=== PATIENT | female | born 1980 | race Caucasian/White ===

== ENCOUNTER 2016-09-21 19:25 | Emergency (ER) | payer OTHER ==
--- NOTE | 2016-09-21 19:33 | EDM.PDOC ---
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 Patient has had on and off contractions and cramping throughout this . This evening she had an episode passing some brownish discharge. She has been followed by Dr. Hodges this . She's had a series of quantitative hCGs her most recent done earlier today which was a little above 31,000. On 16 September it was 2515 on the it was 14,697. This is obviously trending up. The patient has not had any fevers or chills no nausea or vomiting she is eating and drinking okay yesterday she was doing some exercises that involve some jumping and she wonders if maybe she overdid it. She is a one para zero. - Related Data Allergies/ADRs: Allergies Allergy/AdvReac Type Severity Reaction Status Date / Time Penicillins Allergy hives, Verified 09/21/16 19:38 itching Home Meds: Home Meds #103/Iron Fumarate/Fa [ ] 1 mg PO BID 09/21/16 [History] ED ROS GENERAL - Review of Systems Review Of Systems: See Below Constitutional: Reports: no symptoms Respiratory: Reports: no symptoms Cardiovascular: Reports: No symptoms GI/Abdominal: Reports: No symptoms : Reports: other (today's episode of spotting and cramping) Musculoskeletal: Reports: no symptoms Neurological: Reports: no symptoms ED EXAM - Physical Exam Exam: See Below Exam Limited By: No limitations General Appearance: alert, no apparent distress Respiratory/Chest: no respiratory distress, lungs clear, normal breath sounds Cardiovascular: regular rate, rhythm, no edema, no murmur GI/Abdominal: normal bowel sounds, soft, other (she has some suprapubic discomfort otherwise no discomfort palpable no rebound or guarding no rigidity) (Female) Exam: Normal external exam, Normal speculum exam, Other (she has a scant amount of off-colored discharge it looks very much like old blood. Cervix appears normal no other abnormalities appreciated) Back Exam: normal inspection. No: CVA tenderness (L), CVA tenderness (R) Neurological: alert, oriented Course - Vital Signs Last Recorded V/S: Last Vital Signs Temp 37.0 C 09/21/16 19:31 Pulse 84 09/21/16 19:31 Resp 19 09/21/16 19:31 BP 129/84 09/21/16 19:31 Pulse Ox 100 09/21/16 19:31 - Orders/Labs/Meds Labs: Laboratory Tests 09/21/16 09/21/16 09/21/16 Range/Units 20:01 20:18 20:18 WBC 10.66 H (3.98-10.04) K/mm3 RBC 4.01 (3.98-5.22) M/mm3 Hgb 12.5 (11.2-15.7) gm/L Hct 37.3 (34.1-44.9) % MCV 93.0 (79.4-94.8) fl MCH 31.2 (25.6-32.2) pg MCHC 33.5 (32.2-35.5) g/dl RDW Std Deviation 42.3 (36.4-46.3) fL Plt Count 363 (182-369) K/mm3 MPV 8.9 L (9.4-12.3) fl Neutrophils % (Manual) 58 (40-60) % Band Neutrophils % 0 (0-10) % Lymphocytes % (Manual) 33 (20-40) % Atypical Lymphs % 3 % Monocytes % (Manual) 4 (2-10) % Eosinophils % (Manual) 2 (0.7-5.8) % Basophils % (Manual) 0 L (0.1-1.2) Platelet Estimate Adequate Plt Morphology Comment Normal RBC Morph Comment Normal Urine Color Yellow (Yellow) Urine Appearance Clear (Clear) Urine pH 7.0 (5.0-8.0) Ur Specific [place] 1.010 (1.005-1.030) Urine Protein Negative (Negative) Urine Glucose (UA) Negative (Negative) Urine Ketones Negative (Negative) Urine Occult Blood Negative (Negative) Urine Nitrite Negative (Negative) Urine Bilirubin Negative (Negative) Urine Urobilinogen 0.2 (0.2-1.0) Ur Leukocyte Esterase Negative (Negative) Urine RBC 0-5 (0-5) /hpf Urine WBC 0-5 (0-5) /hpf Ur Squamous Epith Cells Not seen (0-5) /hpf Urine Bacteria Rare (FEW) /hpf Urine Mucus Not seen (FEW) /hpf Blood Type O POSITIVE Gel Antibody Screen Negative - Re-Assessments/Exams Free Text/Narrative Re-Assessment/Exam: 09/21/16 21:37 urinalysis is entirely normal CBC unrevealing the patient had a quantitative hCG done earlier today this continues to go up and is now 31,000.on the of this last month was 2515 and on the it was 14,697 Blood type is O+. The patient is advised in no uncertain terms do no exercise get plenty of rest no exertional activity and certainly no exercise. She's advised to followup with Dr. Washington tomorrow Departure - Departure Time of Disposition: 21:39 Disposition: Home, Self-Care 01 Clinical Impression: Threatened Instructions: Threatened Miscarriage Referrals: Louis Washington MD [Primary Care Provider] - Forms: ED Department Discharge Additional Instructions: Return to the emergency room with any questions or problems. Followup with Dr. Washington tomorrow. Drink plenty of fluids. Bed rest getting up for meals and bathroom slowly.
[2016-09-21 19:38] VITALS: BP 129/84
== END 2016-09-21 22:03 | disposition home or self-care (01) ==
LOC: JD.ED 19:25
DX: O20.0 Threatened abortion (principal); Z3A.01 Less than 8 weeks gestation of pregnancy; Z88.0 Allergy status to penicillin
CPT/HCPCS: 36415; 81001; 85025; 86850; 86900; 86901; 99283; 99284